=== PATIENT | female | born 1965 | race Caucasian/White ===

== ENCOUNTER 2017-08-08 12:40 | Emergency (ER) | payer BC ==
[2017-08-08 13:11] VITALS: RESP 18
[2017-08-08 14:01] LABS: Anisocytosis Slight; Basophils % (A) 1 %; Eosinophils # (A) 0.1 k/uL (0-0.7); Eosinophils % (A) 2 %; HCT 37.4 % (34.0-46.0); Hypochromasia Slight; Lymphocytes # (A) 1.1 k/uL (1.0-4.8); Lymphocytes % (A) 17 %; MCH 24.1 pg (25.0-35.0); MCHC 32.2 g/dL (31.0-37.0); MCV 74.7 fL (80.0-100.0); Mean Platelet Volume 7.3; Microcytosis Moderate; Monocytes # (A) 0.4 k/uL (0-1.0); Monocytes % (A) 6 %; Neutrophils # (A) 4.8 k/uL (1.3-7.7); Neutrophils % (A) 73 %; Platelet Count 216 k/uL (150-450); RDW 17.5 % (11.5-15.5); WBC 6.6 k/uL (3.8-10.6)
[2017-08-08 14:11] LABS: Albumin 3.9 g/dL (3.5-5.0); Calcium 9.6 mg/dL (8.4-10.2); Potassium 5.2 mmol/L (3.5-5.1); Total Protein 8.3 g/dL (6.3-8.2)
--- NOTE | 2017-08-08 14:14 | CT ---
EXAMINATION TYPE: CT brain wo con DATE OF EXAM: 08/08/2017 COMPARISON: NONE HISTORY: 51-year-old female complains of episode of near syncope and facial numbness. TECHNIQUE: Examination was done in axial plane without intravenous contrast. Coronal and sagittal r econstructions performed. CT DLP: 782.6 mGycm Automated exposure control for dose reduction was used. FINDINGS: There is no evidence of acute intracranial hemorrhage, acute ischemic changes, mass, mass-effect, or extra-axial fluid collection. There is no effacement of cerebral sulci or basal subarachnoid cister ns. There is no hydrocephalus. There is no midline shift. Mena-white matter distinction is preserv ed. Partially empty sella incidentally noted. Paranasal sinuses and mastoid air cells well pneumatized. Orbits and globes are intact. IMPRESSION: No acute intracranial abnormality seen.
[2017-08-08 14:15] LABS: Prothrombin Time 9.5 sec (9.0-12.0)
--- NOTE | 2017-08-08 14:15 | XR ---
EXAMINATION TYPE: XR chest 2V DATE OF EXAM: 08/08/2017 COMPARISON: None HISTORY: 51-year-old female syncope TECHNIQUE: Frontal and lateral views FINDINGS: Heart normal size. Aorta and pulmonary vasculature within normal limits. Strandy atelectasis at the r ight lower lung. No consolidation or pleural effusion. IMPRESSION: No acute cardiopulmonary process.
[2017-08-08 14:30] LABS: Creatine Kinase 93 U/L (30-135)
[2017-08-08 14:41] LABS: Creatine Kinase MB 1.1 ng/mL (0.0-2.4)
[2017-08-08 14:42] LABS: Troponin I <0.012 ng/mL (0.000-0.034)
--- NOTE | 2017-08-08 15:31 | ED ---
General Adult HPI - General Chief complaint: Syncope Stated complaint: Near Syncope Time Seen by Provider: 08/08/17 13:29 Source: patient Mode of arrival: ambulatory Limitations: no limitations - History of Present Illness Initial comments: 51 years old male just moved to [place] from [place] , like cramp on the left side and on cramp on the left upper extremity today it happened about 11:00 and she felt that she is given a pass out she also felt that there was some tingling of her face she denies any headache no blurred vision and then all the symptoms resolved on arrival to the ER she denies any headaches no blurred vision no chest pain no slurred speech she said she felt like there was a prolonged muscle cramp her left arm and the left leg but now is has all resolved 100%. She does have a history of liver disease she does have esophageal versus in she had a history of GI bleed from esophageal varices. Review of system is unremarkable otherwise - Related Data Home Medications Medication Instructions Recorded Confirmed Cetirizine HCl [Zyrtec] 10 mg PO DAILY 08/08/17 08/08/17 Furosemide [Lasix] 20 mg PO DAILY 08/08/17 08/08/17 Nadolol [Corgard] 40 mg PO DAILY 08/08/17 08/08/17 Nystatin 100,000 Unit/gm Oint 1 applic TOPICAL Q4H PRN 08/08/17 08/08/17 [Mycostatin Oint] Obeticholic Acid [Ocaliva] 5 mg PO DAILY 08/08/17 08/08/17 Pantoprazole Sodium [Protonix] 40 mg PO DAILY 08/08/17 08/08/17 Spironolactone 100 mg PO DAILY 08/08/17 08/08/17 hydrOXYzine HCL [Atarax] 50 mg PO HS PRN 08/08/17 08/08/17 Allergies Allergy/AdvReac Type Severity Reaction Status Date / Time codeine Allergy Unknown Verified 08/08/17 14:16 Review of Systems ROS Statement: Those systems with pertinent positive or pertinent negative responses have been documented in the HPI. ROS Other: All systems not noted in ROS Statement are negative. Past Medical History Past Medical History: Hypertension Additional Past Medical History / Comment(s): PBC History of Any Multi-Drug Resistant Organisms: None Reported Past Surgical History: Joint Replacement, Tubal Ligation Past Psychological History: No Psychological Hx Reported Smoking Status: Never smoker Past Alcohol Use History: Rare Past Drug Use History: None Reported General Exam - General Exam Comments Initial Comments: General: The patient is awake and alert, in no distress, and does not appear acutely ill. GCS is 15 Skin: Skin is warm and dry and no rashes or lesions are noted. Eye: Pupils are equal, round and reactive to light, extra-ocular movements are intact; there is normal conjunctiva bilaterally. Ears, nose, mouth and throat: There are moist mucous membranes and no oral lesions. Neck: The neck is supple, there is no tenderness or JVD. Cardiovascular: There is a regular rate and rhythm. No murmur, rub or gallop is appreciated. Respiratory: To auscultation bilateral, no wheezing no rhonchi no distress respiratory gaspar noticed Gastrointestinal: Soft, non-distended, non-tender abdomen without masses or organomegaly noted. There is no rebound or guarding present. Bowel sounds are unremarkable. Back: There is no tenderness to palpation in the midline. There is no obvious deformity. Musculoskeletal: Normal ROM, no tenderness, There is no pedal edema. There is no calf tenderness or swelling. No cords were appreciated. Neurological: CN II-XII intact, Cranial nerves III through XII are intact. There are no obvious motor or sensory deficits. Coordination appears grossly intact. Speech is normal. Psychiatric: Cooperative, appropriate mood & affect, normal judgment. Limitations: no limitations Course Vital Signs 08/08/17 13:04 Temperature 98.7 F Pulse Rate 66 Respiratory 18 Rate Blood Pressure 110/63 O2 Sat by Pulse 99 Oximetry Laboratory assessment CBC is normal INR is within normal range potassium is slightly elevated 5.2 creatinine is 1.39 I don't know her baseline troponin is negative head CT is unremarkable chest x-ray ruled out any pneumonia 1546 she has a no symptoms at all, no neuro deficits she was to go home, she be referred to neurology as outpatient she has a history of liver disease he is our ER doctor at the hand the floor for last EKG Findings - EKG Comments: EKG Findings:: I'm EKG is normal sinus rhythm ventricular rate is 61 MA interval is 136 QRS duration is 79 QRS duration is 79 QT/QTc is 448/452 review of this EKG reveals some T-wave inversion in lead [address] elevation or ST depression noticed in the other leads Medical Decision Making - Lab Data Result diagrams: 08/08/17 13:40 08/08/17 13:40 Lab Results 08/08/17 08/08/17 08/08/17 Range/Units 13:40 13:40 13:40 WBC 6.6 (3.8-10.6) k/uL RBC 5.00 (3.80-5.40) m/uL Hgb 12.0 (11.4-16.0) gm/dL Hct 37.4 (34.0-46.0) % MCV 74.7 L (80.0-100.0) fL MCH 24.1 L (25.0-35.0) pg MCHC 32.2 (31.0-37.0) g/dL RDW 17.5 H (11.5-15.5) % Plt Count 216 (150-450) k/uL Neutrophils % 73 % Lymphocytes % 17 % Monocytes % 6 % Eosinophils % 2 % Basophils % 1 % Neutrophils # 4.8 (1.3-7.7) k/uL Lymphocytes # 1.1 (1.0-4.8) k/uL Monocytes # 0.4 (0-1.0) k/uL Eosinophils # 0.1 (0-0.7) k/uL Basophils # 0.0 (0-0.2) k/uL Hypochromasia Slight Anisocytosis Slight Microcytosis Moderate PT (9.0-12.0) sec INR (<1.2) APTT (22.0-30.0) sec Sodium 140 (137-145) mmol/L Potassium 5.2 H (3.5-5.1) mmol/L Chloride 102 (98-107) mmol/L Carbon Dioxide 24 (22-30) mmol/L Anion Gap 14 mmol/L BUN 34 H (7-17) mg/dL Creatinine 1.39 H (0.52-1.04) mg/dL Est GFR (CKD-EPI)AfAm 50 (>60 ml/min/1.73 sqM) Est GFR (CKD-EPI)NonAf 43 (>60 ml/min/1.73 sqM) Glucose 116 H (74-99) mg/dL Calcium 9.6 (8.4-10.2) mg/dL Total Bilirubin 1.0 (0.2-1.3) mg/dL AST 71 H (14-36) U/L ALT 40 (9-52) U/L Alkaline Phosphatase 463 H (38-126) U/L Total Creatine Kinase 93 (30-135) U/L CK-MB (CK-2) 1.1 (0.0-2.4) ng/mL CK-MB (CK-2) Rel Index 1.2 Troponin I <0.012 (0.000-0.034) ng/mL Total Protein 8.3 H (6.3-8.2) g/dL Albumin 3.9 (3.5-5.0) g/dL Urine Color Urine Appearance (Clear) Urine pH (5.0-8.0) Ur Specific [place] (1.001-1.035) Urine Protein (Negative) Urine Glucose (UA) (Negative) Urine Ketones (Negative) Urine Blood (Negative) Urine Nitrite (Negative) Urine Bilirubin (Negative) Urine Urobilinogen (<2.0) mg/dL Ur Leukocyte Esterase (Negative) Urine RBC (0-5) /hpf Urine WBC (0-5) /hpf Ur Squamous Epith Cells (0-4) /hpf Urine Bacteria (None) /hpf Hyaline Casts (0-2) /lpf Urine Mucus (None) /hpf 08/08/17 08/08/17 Range/Units 13:40 14:30 WBC (3.8-10.6) k/uL RBC (3.80-5.40) m/uL Hgb (11.4-16.0) gm/dL Hct (34.0-46.0) % MCV (80.0-100.0) fL MCH (25.0-35.0) pg MCHC (31.0-37.0) g/dL RDW (11.5-15.5) % Plt Count (150-450) k/uL Neutrophils % % Lymphocytes % % Monocytes % % Eosinophils % % Basophils % % Neutrophils # (1.3-7.7) k/uL Lymphocytes # (1.0-4.8) k/uL Monocytes # (0-1.0) k/uL Eosinophils # (0-0.7) k/uL Basophils # (0-0.2) k/uL Hypochromasia Anisocytosis Microcytosis PT 9.5 (9.0-12.0) sec INR 1.0 (<1.2) APTT 22.0 (22.0-30.0) sec Sodium (137-145) mmol/L Potassium (3.5-5.1) mmol/L Chloride (98-107) mmol/L Carbon Dioxide (22-30) mmol/L Anion Gap mmol/L BUN (7-17) mg/dL Creatinine (0.52-1.04) mg/dL Est GFR (CKD-EPI)AfAm (>60 ml/min/1.73 sqM) Est GFR (CKD-EPI)NonAf (>60 ml/min/1.73 sqM) Glucose (74-99) mg/dL Calcium (8.4-10.2) mg/dL Total Bilirubin (0.2-1.3) mg/dL AST (14-36) U/L ALT (9-52) U/L Alkaline Phosphatase (38-126) U/L Total Creatine Kinase (30-135) U/L CK-MB (CK-2) (0.0-2.4) ng/mL CK-MB (CK-2) Rel Index Troponin I (0.000-0.034) ng/mL Total Protein (6.3-8.2) g/dL Albumin (3.5-5.0) g/dL Urine Color Yellow Urine Appearance Cloudy H (Clear) Urine pH 5.0 (5.0-8.0) Ur Specific [place] 1.010 (1.001-1.035) Urine Protein Negative (Negative) Urine Glucose (UA) Negative (Negative) Urine Ketones Negative (Negative) Urine Blood Negative (Negative) Urine Nitrite Negative (Negative) Urine Bilirubin Negative (Negative) Urine Urobilinogen <2.0 (<2.0) mg/dL Ur Leukocyte Esterase Negative (Negative) Urine RBC <1 (0-5) /hpf Urine WBC 1 (0-5) /hpf Ur Squamous Epith Cells 4 (0-4) /hpf Urine Bacteria Rare H (None) /hpf Hyaline Casts 9 H (0-2) /lpf Urine Mucus Rare H (None) /hpf Disposition Clinical Impression: Facial numbness, TIA (transient ischemic attack) Disposition: HOME SELF-CARE Condition: Good Referrals: None,Stated [Primary Care Provider] - 1-2 days Ana Berrios MD [STAFF PHYSICIAN] - 1-2 days
[2017-08-08 15:34] LABS: Appearance,Urine Cloudy (Clear); Bacteria,Urine Rare /hpf; Bilirubin,Urine Negative (Negative); Blood,Urine Negative (Negative); Color,Urine Yellow; Glucose,Urine (UA) Negative (Negative); Hyaline Casts,Urine 9 /lpf (0-2); Ketones,Urine Negative (Negative); Leukocyte Esterase,Urine Negative (Negative); Mucus,Urine Rare /hpf; Nitrite,Urine Negative (Negative); Protein,Urine Negative (Negative); RBC,Urine <1 /hpf (0-5); Squamous Epithelial Cell,Urine 4 /hpf (0-4); Urobilinogen,Urine <2.0 mg/dL (<2.0); WBC,Urine 1 /hpf (0-5)
[2017-08-08 16:04] VITALS: BP 94/57; PULSE 61; TEMP 97.7
== END 2017-08-08 16:03 | disposition home or self-care (01) ==
LOC: EC 12:40
DX: G45.9 Transient cerebral ischemic attack, unspecified (principal); I10 Essential (primary) hypertension; I85.01 Esophageal varices with bleeding; Z79.899 Other long term (current) drug therapy; Z88.5 Allergy status to narcotic agent
CPT/HCPCS: 36415; 70450; 71046; 80053; 81001; 82550; 82553; 84484; 85025; 85610; 85730; 93005; 99284

== ENCOUNTER 2018-10-12 20:52 | Observation (INO) | payer BC ==
[2018-10-12] MEDS ORDERED: MORPHINE SULFATE 4 MG/ML SYRINGE IV STA ×2 (21:36→23:23)
--- NOTE | 2018-10-12 21:36 | ED ---
Fall HPI - General Chief Complaint: Fall Stated Complaint: Fall Time Seen by Provider: 10/12/18 21:23 Source: patient Mode of arrival: wheelchair - History of Present Illness Initial Comments: This patient is a 52-year-old woman who states that she was thrown from a horse and had fallen. She states the horse had been startled and then she was thrown off, landing on the back of her neck, back and head. She complains of pain from the head down her back. She states she did not have loss consciousness. She has been up and walking since that period. Complaint: fall -: hour(s) Fall From: other (Course) When Fall Occurred: 1-3 hours [employer]RETCH[employer] DRI[employer] Fall Witnessed: yes, by family Place Fall Occurred: other Loss of Consciousness: none Prolonged Down Time?: no Symptoms Prior to Fall: none Location: head, neck, back Severity: severe Quality: dull Associated Symptoms: headache, neck pain - Related Data Home Medications Medication Instructions Recorded Confirmed Furosemide [Lasix] 20 mg PO BID 08/08/17 10/12/18 Nadolol [Corgard] 20 mg PO DAILY 08/08/17 10/12/18 Obeticholic Acid [Ocaliva] 5 mg PO DAILY 08/08/17 10/12/18 Pantoprazole Sodium [Protonix] 40 mg PO DAILY 08/08/17 10/12/18 Spironolactone 50 mg PO DAILY 08/08/17 10/12/18 hydrOXYzine HCL [Atarax] 50 mg PO HS 08/08/17 10/12/18 Rifampin 150 mg PO BID 10/12/18 10/12/18 Ursodiol 300 mg PO BID 10/12/18 10/12/18 Allergies Allergy/AdvReac Type Severity Reaction Status Date / Time codeine AdvReac Chest Pain Verified 10/12/18 22:24 Review of Systems ROS Statement: Those systems with pertinent positive or pertinent negative responses have been documented in the HPI. ROS Other: All systems not noted in ROS Statement are negative. Constitutional: Denies: fever, chills Eyes: Denies: vision change Respiratory: Denies: cough, dyspnea Cardiovascular: Denies: chest pain, palpitations, syncope Gastrointestinal: Denies: abdominal pain, vomiting, diarrhea Genitourinary: Denies: dysuria, hematuria Musculoskeletal: Reports: as per HPI, back pain Skin: Denies: rash Neurological: Reports: headache. Denies: weakness, numbness, paresthesias, confusion Hematological/Lymphatic: Denies: easy bleeding Past Medical History Past Medical History: Hypertension Additional Past Medical History / Comment(s): PBC History of Any Multi-Drug Resistant Organisms: None Reported Past Surgical History: Joint Replacement, Tubal Ligation Past Psychological History: No Psychological Hx Reported Smoking Status: Never smoker Past Alcohol Use History: Rare Past Drug Use History: None Reported General Exam Limitations: no limitations General appearance: alert, in no apparent distress Head exam: Present: atraumatic, normocephalic, normal inspection Eye exam: Present: normal appearance, PERRL, EOMI. Absent: scleral icterus, conjunctival injection ENT exam: Present: normal oropharynx Neck exam: Present: normal inspection, other (Cervical collar) Respiratory exam: Present: normal lung sounds bilaterally. Absent: respiratory distress, wheezes, rales, rhonchi, stridor, chest wall tenderness Cardiovascular Exam: Present: regular rate, normal rhythm, normal heart sounds. Absent: systolic murmur, diastolic murmur, rubs, gallop GI/Abdominal exam: Present: soft. Absent: distended, tenderness, guarding, rebound, rigid, mass Extremities exam: Present: normal inspection, full ROM, normal capillary refill. Absent: tenderness, pedal edema, calf tenderness Back exam: Present: normal inspection, tenderness. Absent: CVA tenderness (R), CVA tenderness (L) Neurological exam: Present: alert, oriented X3, CN II-XII intact. Absent: motor sensory deficit Skin exam: Present: warm, dry, intact, normal color. Absent: rash Course Vital Signs 10/12/18 20:59 Temperature 98.2 F Pulse Rate 81 Respiratory 18 Rate Blood Pressure 168/86 O2 Sat by Pulse 100 Oximetry Medical Decision Making - Lab Data Result diagrams: 10/12/18 21:15 10/12/18 21:15 Lab Results 10/12/18 10/12/18 10/12/18 Range/Units 21:15 21:15 23:16 WBC 3.5 L (3.8-10.6) k/uL RBC 4.31 (3.80-5.40) m/uL Hgb 12.7 (11.4-16.0) gm/dL Hct 39.8 (34.0-46.0) % MCV 92.5 (80.0-100.0) fL MCH 29.5 (25.0-35.0) pg MCHC 31.9 (31.0-37.0) g/dL RDW 15.1 (11.5-15.5) % Plt Count 93 L (150-450) k/uL Neutrophils % 72 % Lymphocytes % 20 % Monocytes % 5 % Eosinophils % 2 % Basophils % 1 % Neutrophils # 2.5 (1.3-7.7) k/uL Lymphocytes # 0.7 L (1.0-4.8) k/uL Monocytes # 0.2 (0-1.0) k/uL Eosinophils # 0.1 (0-0.7) k/uL Basophils # 0.0 (0-0.2) k/uL Manual Slide Review Performed Large Platelets Present Sodium 142 (137-145) mmol/L Potassium 4.3 (3.5-5.1) mmol/L Chloride 111 H (98-107) mmol/L Carbon Dioxide 21 L (22-30) mmol/L Anion Gap 10 mmol/L BUN 17 (7-17) mg/dL Creatinine 0.84 (0.52-1.04) mg/dL Est GFR (CKD-EPI)AfAm >90 (>60 ml/min/1.73 sqM) Est GFR (CKD-EPI)NonAf 79 (>60 ml/min/1.73 sqM) Glucose 138 H (74-99) mg/dL Calcium 9.2 (8.4-10.2) mg/dL Total Bilirubin 2.0 H (0.2-1.3) mg/dL AST 218 H (14-36) U/L ALT 135 H (9-52) U/L Alkaline Phosphatase 581 H (38-126) U/L Total Protein 8.2 (6.3-8.2) g/dL Albumin 4.1 (3.5-5.0) g/dL Urine Color Yellow Urine Appearance Cloudy H (Clear) Urine pH 5.5 (5.0-8.0) Ur Specific [place] 1.019 (1.001-1.035) Urine Protein Negative (Negative) Urine Glucose (UA) Negative (Negative) Urine Ketones Negative (Negative) Urine Blood Negative (Negative) Urine Nitrite Positive H (Negative) Urine Bilirubin Negative (Negative) Urine Urobilinogen <2.0 (<2.0) mg/dL Ur Leukocyte Esterase Small H (Negative) Urine RBC 1 (0-5) /hpf Urine WBC 9 H (0-5) /hpf Ur Squamous Epith Cells 5 H (0-4) /hpf Urine Bacteria Occasional H (None) /hpf Urine Mucus Rare H (None) /hpf Disposition Clinical Impression: Fall Disposition: ADMITTED IP TO THIS HOSP Condition: Fair Instructions (If sedation given, give patient instructions): Back Pain (ED) Is patient prescribed a controlled substance at d/c from ED?: No Referrals: Nonstaff,Physician [Primary Care Provider] - 1-2 days Jesse Benavides DO [Doctor of Osteopathic Medicine] - 1-2 days
[2018-10-12 22:03] LABS: Basophils % (A) 1 %; Eosinophils # (A) 0.1 k/uL (0-0.7); Eosinophils % (A) 2 %; HCT 39.8 % (34.0-46.0); HGB 12.7 gm/dL (11.4-16.0); Lymphocytes # (A) 0.7 k/uL (1.0-4.8); Lymphocytes % (A) 20 %; MCH 29.5 pg (25.0-35.0); MCHC 31.9 g/dL (31.0-37.0); MCV 92.5 fL (80.0-100.0); Mean Platelet Volume 8.7; Monocytes # (A) 0.2 k/uL (0-1.0); Monocytes % (A) 5 %; Neutrophils # (A) 2.5 k/uL (1.3-7.7); Neutrophils % (A) 72 %; RBC 4.31 m/uL (3.80-5.40); RDW 15.1 % (11.5-15.5); WBC 3.5 k/uL (3.8-10.6)
--- NOTE | 2018-10-12 22:04 | CT ---
EXAMINATION TYPE: CT brain cspine wo con DATE OF EXAM: 10/12/2018 COMPARISON: 08/08/2017 HISTORY: Head and neck pain CT DLP: 1316.5 mGycm. Automated Exposure Control for Dose Reduction was Utilized. TECHNIQUE: CT scan of the head and cervical spine are performed without contrast. FINDINGS: There is no acute intracranial hemorrhage, mass effect, or midline shift identified. The ventricles and sulci are within normal limits in size. The globes are intact and the visualized sin uses are clear. Cervical spine is visualized in its entirety from C1 through upper thoracic levels and demonstrates s atisfactory alignment without evidence of acute fracture or dislocation. Small posterior disc osteop hyte complexes seen at C4-C5. Minimal uncovertebral hypertrophy is noted at multiple levels. Preverte bral soft tissue appears within normal limits. The C1-C2 articulation is unremarkable. Left lobe of the thyroid gland is noted to be diminutive or surgically absent. IMPRESSION: 1. There is no acute fracture or dislocation evident in the cervical spine. 2. No acute intracranial hemorrhage, mass effect, or midline shift is seen.
[2018-10-12 22:10] LABS: ALT 135 U/L (9-52); AST 218 U/L (14-36); African American GFR (CKD) >90 (>60 ml/min/1.73 sqM); Albumin 4.1 g/dL (3.5-5.0); Alkaline Phosphatase 581 U/L (38-126); Anion Gap 10 mmol/L; Blood Urea Nitrogen 17 mg/dL (7-17); Calcium 9.2 mg/dL (8.4-10.2); Carbon Dioxide 21 mmol/L (22-30); Chloride 111 mmol/L (98-107); Glucose 138 mg/dL (74-99); Potassium 4.3 mmol/L (3.5-5.1); Sodium 142 mmol/L (137-145); Total Protein 8.2 g/dL (6.3-8.2)
[2018-10-12 22:27] LABS: Large Platelets Present; Platelet Count 93 k/uL (150-450)
--- NOTE | 2018-10-12 22:56 | XR ---
EXAM: XR Pelvis, 1 or 2 Views CLINICAL HISTORY: ITS.REASON XR Reason: Pain TECHNIQUE: Frontal view of the pelvis. COMPARISON: No relevant prior studies available. FINDINGS: Bones/joints: Unremarkable. No acute fracture. No dislocation. Soft tissues: Unremarkable. IMPRESSION: No acute findings.
--- NOTE | 2018-10-12 22:57 | XR ---
EXAM: XR Thoracic Spine, 2 Views CLINICAL HISTORY: ITS.REASON XR Reason: Pain TECHNIQUE: Frontal and lateral views of the thoracic spine. COMPARISON: No relevant prior studies available. FINDINGS: Vertebrae: Unremarkable. No acute fracture. Normal alignment. Disc spaces: No acute findings. No significant narrowing. Soft tissues: Surgical clips in the right upper quadrant. IMPRESSION: No acute findings.
--- NOTE | 2018-10-12 22:58 | XR ---
EXAM: XR Chest, 2 Views CLINICAL HISTORY: ITS.REASON XR Reason: Pain TECHNIQUE: Frontal and lateral views of the chest. COMPARISON: No relevant prior studies available. FINDINGS: Lungs: Low lung volumes. No consolidation. Pleural space: Unremarkable. No pneumothorax. Heart: Unremarkable. No cardiomegaly. Mediastinum: Unremarkable. Bones/joints: Unremarkable. IMPRESSION: Low lung volumes. No acute findings.
[2018-10-12 23:31] LABS: Appearance,Urine Cloudy (Clear); Bacteria,Urine Occasional /hpf; Bilirubin,Urine Negative (Negative); Blood,Urine Negative (Negative); Color,Urine Yellow; Glucose,Urine (UA) Negative (Negative); Ketones,Urine Negative (Negative); Leukocyte Esterase,Urine Small (Negative); Mucus,Urine Rare /hpf; Nitrite,Urine Positive (Negative); PH, Urine 5.5 (5.0-8.0); Protein,Urine Negative (Negative); RBC,Urine 1 /hpf (0-5); Specific Gravity,Urine 1.019 (1.001-1.035); Squamous Epithelial Cell,Urine 5 /hpf (0-4); Urobilinogen,Urine <2.0 mg/dL (<2.0); WBC,Urine 9 /hpf (0-5)
--- NOTE | 2018-10-13 00:02 | CT ---
EXAM: CT Chest Without Intravenous Contrast CLINICAL HISTORY: ITS.REASON CT Reason: Pain TECHNIQUE: Axial computed tomography images of the chest without intravenous contrast. CTDI is 6.7 mGy and DLP is 307.4 mGy-cm. This CT exam was performed using one or more of the following dose reduction techniques: automated exposure control, adjustment of the mA and/or kV according to patient size, and/or use of iterative reconstruction technique. COMPARISON: No relevant prior studies available. FINDINGS: Lungs: Scattered atelectasis. No mass. No consolidation. Pleural space: Unremarkable. No pneumothorax. No significant effusion. Heart: Unremarkable. No cardiomegaly. No significant pericardial effusion. Bones/joints: Unremarkable. No acute fracture. No dislocation. Soft tissues: Unremarkable. Vasculature: Unremarkable. No thoracic aortic aneurysm. Lymph nodes: Unremarkable. No enlarged lymph nodes. Liver: Micronodular contour to the liver suggestive of cirrhosis. Gallbladder and bile ducts: Prior cholecystectomy. Pancreas: Diffuse mesenteric edema and small amount of fluid in the right paracolic gutter. Cannot exclude inflammatory processes such as pancreatitis. Spleen: Splenomegaly. Stomach wall thickening. IMPRESSION: No acute findings. Cirrhotic liver and splenomegaly. Nonspecific mesenteric edema and right paracolic fluid. This could be secondary to liver disease, though an intra-abdominal inflammatory process such as pancreatitis is difficult to exclude. Stomach wall thickening could be related to under distention versus gastritis.
[2018-10-13] MEDS ORDERED: HYDROmorphone 0.5 MG/0.5 ML SYRINGE IVP STA (00:24)
[2018-10-13] MEDS ORDERED: KETOROLAC 30 MG/ML 1 ML VIAL IVP STA (00:24)
[2018-10-13] MEDS ORDERED: NALOXONE 0.4 MG/ML 1 ML VIAL IV PRN (01:00)
[2018-10-13] MEDS ORDERED: ACETAMINOPHEN TAB 325 MG TAB PO PRN (01:00)
[2018-10-13] MEDS: SODIUM CHLORIDE 0.9% 1,000 ML IV SCH ×2 (01:37→17:27)
[2018-10-13] MEDS: HYDROmorphone 0.5 MG/0.5 ML SYRINGE IVP PRN ×2 (02:39→07:56)
[2018-10-13 03:23] VITALS: BMI 30.7
[2018-10-13] MEDS: ONDANSETRON 4 MG/2 ML VIAL IVP PRN (03:45)
--- NOTE | 2018-10-13 08:44 | CT ---
EXAMINATION TYPE: CT thor lumbar spine wo con DATE OF EXAM: 10/13/2018 COMPARISON: None HISTORY: Intractable back pain, thrown from horse CT DLP: 946.4 mGycm Automated exposure control for dose reduction was used. FINDINGS: Mild superior endplate of T12, T6 and T7 are noted compatible with mild superior endplate compression fractures of indeterminate age. MRI suggested. Schmorl's nodes involving T11 and T9 superior endplate. Alignment anatomic. Assessment spinal canal nondiagnostic due to noncontrast technique and resolution . The heart appears to be enlarged Subsegmental changes involving the lung suggestive of atelectasis or scarring. Underlying chronic int erstitial lung disease in the differential diagnosis. Small amount of fluid is seen in the right [place] colic gutter and mesenteric fluid or edema. Could not exclude a mesenteric vascular, pancreatic or du odenal injury. Findings been reported on the CT scan of 10/12/2018. IMPRESSION: 1. Recent appearing cyst superior endplate mild compression fractures T6 and T7. Assessment spinal ca nal nondiagnostic as discussed above. Follow-up MRI recommended. 2. Indeterminant age appearing deformity superior endplate T12. 3. Incidental note is made of a small amount of fluid within the right paracolic gutter which was rep orted on the CT scan of 10/12/2018
--- NOTE | 2018-10-13 08:54 | P.GSHP ---
History of Present Illness H&P Date: 10/13/18 52-year-old female presented to the emergency department after a fall from riding a horse. She states that she lost control and fell onto her back. She denied any loss of consciousness. She states that she does ride horses as a hobby and has had multiple falls from horses in the past. She states that during her fall her breath was knocked out of her. She did present to the emergency department and had a workup. Imaging in the emergency department did not show any acute injury. The patient continued to have pain and request was made for admission for analgesia. The patient currently denies any chest pain. She states that she does have pain in her back in a bandlike fashion to her mid back. She denies any nausea vomiting. She denies any abdominal pain. She denies any focal deficits. She denies any numbness or tingling in her upper or lower extremities. She does have appropriate motor strength in all extremities. She is also noted to have a history of primary biliary cirrhosis and is on the liver transplant list. She has no additional complaints at this time. - Review of Systems All systems: negative Past Medical History Past Medical History: Hypertension Additional Past Medical History / Comment(s): PBC History of Any Multi-Drug Resistant Organisms: None Reported Past Surgical History: Joint Replacement, Tubal Ligation Past Anesthesia/Blood Transfusion Reactions: No Reported Reaction Past Psychological History: No Psychological Hx Reported Smoking Status: Never smoker Past Alcohol Use History: Rare Past Drug Use History: None Reported - Past Family History Father Family Medical History: CVA/TIA, Myocardial Infarction ([place]) Mother Family Medical History: Diabetes Mellitus Medications and Allergies Home Medications Medication Instructions Recorded Confirmed Type Furosemide [Lasix] 20 mg PO BID 08/08/17 10/12/18 History Nadolol [Corgard] 20 mg PO DAILY 08/08/17 10/12/18 History Obeticholic Acid [Ocaliva] 5 mg PO DAILY 08/08/17 10/12/18 History Pantoprazole Sodium [Protonix] 40 mg PO DAILY 08/08/17 10/12/18 History Spironolactone 50 mg PO DAILY 08/08/17 10/12/18 History hydrOXYzine HCL [Atarax] 50 mg PO HS 08/08/17 10/12/18 History Rifampin 150 mg PO BID 10/12/18 10/12/18 History Ursodiol 300 mg PO BID 10/12/18 10/12/18 History Allergies Allergy/AdvReac Type Severity Reaction Status Date / Time codeine AdvReac Chest Pain Verified 10/12/18 22:24 Surgical - Exam Osteopathic Statement: *. No significant issues noted on an osteopathic structural exam other than those noted in the History and Physical/Consult. Vital Signs Temp Pulse Resp BP Pulse Ox 98.2 F 81 18 168/86 100 10/12/18 20:59 10/12/18 20:59 10/12/18 20:59 10/12/18 20:59 10/12/18 20:59 - General well developed, well nourished, moderate distress - Eyes PERRL, normal ocular movement - ENT no hearing loss - Neck no masses, no bruits, trachea midline - Respiratory no difficulty with respiration - Abdomen soft, nontender, nondistended, no rebound, no guarding - Integumentary no rash, no growths, no abnormal pigmentation - Neurologic normal coordination, normal sensation - Musculoskeletal Pain to palpation in mid back and radiating to bilateral flanks - Psychiatric oriented to time, oriented to person, oriented to place Results - Labs 10/12/18 21:15 10/12/18 21:15 Abnormal Lab Results - Last 24 Hours (Table) 10/12/18 10/12/18 10/12/18 Range/Units 21:15 21:15 23:16 WBC 3.5 L (3.8-10.6) k/uL Plt Count 93 L (150-450) k/uL Lymphocytes # 0.7 L (1.0-4.8) k/uL Chloride 111 H (98-107) mmol/L Carbon Dioxide 21 L (22-30) mmol/L Glucose 138 H (74-99) mg/dL Total Bilirubin 2.0 H (0.2-1.3) mg/dL AST 218 H (14-36) U/L ALT 135 H (9-52) U/L Alkaline Phosphatase 581 H (38-126) U/L Urine Appearance Cloudy H (Clear) Urine Nitrite Positive H (Negative) Ur Leukocyte Esterase Small H (Negative) Urine WBC 9 H (0-5) /hpf Ur Squamous Epith Cells 5 H (0-4) /hpf Urine Bacteria Occasional H (None) /hpf Urine Mucus Rare H (None) /hpf Diabetes panel 10/12/18 Range/Units 21:15 Sodium 142 (137-145) mmol/L Potassium 4.3 (3.5-5.1) mmol/L Chloride 111 H (98-107) mmol/L Carbon Dioxide 21 L (22-30) mmol/L BUN 17 (7-17) mg/dL Creatinine 0.84 (0.52-1.04) mg/dL Glucose 138 H (74-99) mg/dL Calcium 9.2 (8.4-10.2) mg/dL AST 218 H (14-36) U/L ALT 135 H (9-52) U/L Alkaline Phosphatase 581 H (38-126) U/L Total Protein 8.2 (6.3-8.2) g/dL Albumin 4.1 (3.5-5.0) g/dL Calcium panel 10/12/18 Range/Units 21:15 Calcium 9.2 (8.4-10.2) mg/dL Albumin 4.1 (3.5-5.0) g/dL Pituitary panel 10/12/18 Range/Units 21:15 Sodium 142 (137-145) mmol/L Potassium 4.3 (3.5-5.1) mmol/L Chloride 111 H (98-107) mmol/L Carbon Dioxide 21 L (22-30) mmol/L BUN 17 (7-17) mg/dL Creatinine 0.84 (0.52-1.04) mg/dL Glucose 138 H (74-99) mg/dL Calcium 9.2 (8.4-10.2) mg/dL Adrenal panel 10/12/18 Range/Units 21:15 Sodium 142 (137-145) mmol/L Potassium 4.3 (3.5-5.1) mmol/L Chloride 111 H (98-107) mmol/L Carbon Dioxide 21 L (22-30) mmol/L BUN 17 (7-17) mg/dL Creatinine 0.84 (0.52-1.04) mg/dL Glucose 138 H (74-99) mg/dL Calcium 9.2 (8.4-10.2) mg/dL Total Bilirubin 2.0 H (0.2-1.3) mg/dL AST 218 H (14-36) U/L ALT 135 H (9-52) U/L Alkaline Phosphatase 581 H (38-126) U/L Total Protein 8.2 (6.3-8.2) g/dL Albumin 4.1 (3.5-5.0) g/dL Assessment and Plan (1) Fall Narrative/Plan: 52-year-old female with fall from horse - Due to continued pain, we will plan for a designated CT of the thoracic and lumbar spine - Continue analgesia - Advance diet - Further recommendations after imaging is completed Current Visit: Yes Status: Acute Code(s): W19.XXXA - UNSPECIFIED FALL, INITIAL ENCOUNTER SNOMED Code(s): 7471599
[2018-10-13] MEDS ORDERED: FAMOTIDINE 20 MG TAB PO SCH (09:00)
[2018-10-13] MEDS ORDERED: URSODIOL 300 MG CAP PO SCH (09:00)
[2018-10-13] MEDS: [UNRECOGNIZED DRUG - OTHER] PO SCH (10:24)
[2018-10-13] MEDS: RIFAMPIN 150 MG PO SCH ×2 (10:25→21:17)
[2018-10-13] MEDS: FUROSEMIDE 20 MG TAB PO SCH ×2 (10:28→17:31)
[2018-10-13] MEDS: SPIRONOLACTONE 25 MG TAB PO SCH (10:28)
[2018-10-13] MEDS: NADOLOL 20 MG TAB PO SCH (10:29)
[2018-10-13] MEDS: PANTOPRAZOLE 40 MG TABLET PO SCH (10:33)
[2018-10-13] MEDS: MORPHINE SULFATE 4 MG/ML SYRINGE IV PRN ×3 (10:34→22:54)
[2018-10-13] MEDS: traMADol 50 MG TAB PO PRN (13:37)
[2018-10-13] MEDS: METHOCARBAMOL 500 MG TAB PO SCH ×3 (13:38→21:19)
--- NOTE | 2018-10-13 19:44 | MR ---
EXAMINATION TYPE: MR thoracic spine wo con DATE OF EXAM: 10/13/2018 COMPARISON: HISTORY: T12 FX S/P Fall Standard multiplanar, multisequence MRI departmental protocol Multiplanar, multisequence images of the thoracic spine were acquired. Diffusion weighted imaging was performed. FINDINGS: Vertebra have fairly normal alignment. There is anterior mild wedging of T6 and T7 vertebra l bodies with 10% loss of height at the superior endplates. There is very slight increased signal on T2 images in these vertebral bodies. There is no thoracic paraspinal mass. There is a Schmorl node on the superior endplate of T11. There is very mild edema in the anterior aspect of T12 vertebral body. There is very slight anterior wedgin g of T11 and T12. There is no thoracic paraspinal mass. Posterior elements are intact. There is no spinal stenosis. Tho racic spinal cord shows no evidence of edema. IMPRESSION: Mild thoracic compression fractures. No significant spur formation. These could be relatively acute f ractures. No spinal stenosis. It is not clear if the fractures are a change compared to old chest x-r ay of 08/08/2017.
[2018-10-13] MEDS: hydrOXYzine HCL 25 MG TAB PO SCH (21:18)
--- NOTE | 2018-10-13 23:20 | P.CNOR ---
History of Present Illness - [facility] Consult date: 10/13/18 Requesting physician: Joleen Gaspar Consult reason: fracture (T6, T7, and T12 mild superior endplate compression fracture deformities) History of present illness: Patient is a pleasant 52-year-old female who is seen at the bedside for further evaluation in regards to her thoracic spine. She was thrown off of a horse yesterday, 10/12/2018, sustaining pain in her thoracic spine since that time. She presented to the emergency department for further evaluation. Initially no significant findings were found on x-ray imaging. CT of the thoracic lumbar spine showed evidence of bony changes at T6 and T7 compression fracture deformity at T12. Patient states she has significant pain at the lower thoracic spine with any movements of her spine. She denies any specific lower extremity weakness or radiculopathy bilaterally. She does have some soreness over the lateral hips and thighs. Multiple imaging modalities were taken during her presentation to the emergency department. She is known to have fallen off her horse previously. She has a history of primary biliary cirrhosis and is unable take acetaminophen. Past Medical History Past Medical History: Hypertension Additional Past Medical History / Comment(s): PBC History of Any Multi-Drug Resistant Organisms: None Reported Past Surgical History: Joint Replacement, Tubal Ligation Past Anesthesia/Blood Transfusion Reactions: No Reported Reaction Past Psychological History: No Psychological Hx Reported Smoking Status: Never smoker Past Alcohol Use History: Rare Past Drug Use History: None Reported - Past Family History Father Family Medical History: CVA/TIA, Myocardial Infarction ([place]) Mother Family Medical History: Diabetes Mellitus Medications and Allergies Home Medications Medication Instructions Recorded Confirmed Type Furosemide [Lasix] 20 mg PO BID 08/08/17 10/12/18 History Nadolol [Corgard] 20 mg PO DAILY 08/08/17 10/12/18 History Obeticholic Acid [Ocaliva] 5 mg PO DAILY 08/08/17 10/12/18 History Pantoprazole Sodium [Protonix] 40 mg PO DAILY 08/08/17 10/12/18 History Spironolactone 50 mg PO DAILY 08/08/17 10/12/18 History hydrOXYzine HCL [Atarax] 50 mg PO HS 08/08/17 10/12/18 History Rifampin 150 mg PO BID 10/12/18 10/12/18 History Ursodiol 300 mg PO BID 10/12/18 10/12/18 History Allergies Allergy/AdvReac Type Severity Reaction Status Date / Time codeine AdvReac Chest Pain Verified 10/12/18 22:24 Physical Examination Physical exam: Patient is awake, alert, and oriented 3 Vital signs stable Good chest excursion with deep inspiration and expiration Examination of thoracic and lumbar spine reveals skin is intact with no abrasions, lacerations, or bruises; no erythema, purulence or signs of infection Mild pain with palpation of the mid upper thoracic spine Significant pain with palpation along the midline of the lower thoracic spine Dorsiflexion, plantarflexion, and extensor hallucis longus positive sustained bilaterally Lower extremity strength 5/5 bilaterally No lower extremity hyperreflexia bilaterally No signs or symptoms of DVT; no calf pain No pain with internal and external rotation of the hips bilaterally Neurovascularly intact Results Pertinent studies: CT of the thoracic and lumbar spine taken on 10/13/2018: T12 superior endplate deformity; T6 and T7 recent-appearing cyst at the superior endplate resulting mild compression fracture in which follow-up MRI is recommended; T9 and T11 Schmorl's node; no evidence of lumbar compression fracture deformity X-ray of the pelvis taken on 10/12/2018: No evidence of fracture dislocation within the pelvis; hip joint space and appears to be adequately maintained bilaterally - Labs Labs: Abnormal Lab Results - Last 24 Hours (Table) 10/12/18 10/12/18 10/12/18 Range/Units 21:15 21:15 23:16 WBC 3.5 L (3.8-10.6) k/uL Plt Count 93 L (150-450) k/uL Lymphocytes # 0.7 L (1.0-4.8) k/uL Chloride 111 H (98-107) mmol/L Carbon Dioxide 21 L (22-30) mmol/L Glucose 138 H (74-99) mg/dL Total Bilirubin 2.0 H (0.2-1.3) mg/dL AST 218 H (14-36) U/L ALT 135 H (9-52) U/L Alkaline Phosphatase 581 H (38-126) U/L Urine Appearance Cloudy H (Clear) Urine Nitrite Positive H (Negative) Ur Leukocyte Esterase Small H (Negative) Urine WBC 9 H (0-5) /hpf Ur Squamous Epith Cells 5 H (0-4) /hpf Urine Bacteria Occasional H (None) /hpf Urine Mucus Rare H (None) /hpf H & H 10/12/18 Range/Units 21:15 Hgb 12.7 (11.4-16.0) gm/dL Hct 39.8 (34.0-46.0) % Result Diagrams: 10/12/18 21:15 10/12/18 21:15 Assessment and Plan Assessment: Assessment: T6, T7, and T12 mild superior endplate compression fracture deformities Status post fall from horse Intractable thoracic back pain Primary biliary cirrhosis (1) T6 vertebral fracture Current Visit: Yes Status: Acute Code(s): S22.059A - UNSP FRACTURE OF T5-T6 VERTEBRA, INIT FOR CLOS FX SNOMED Code(s): 527751054 (2) T7 vertebral fracture Current Visit: Yes Status: Acute Code(s): S22.069A - UNSP FRACTURE OF T7-T8 VERTEBRA, INIT FOR CLOS FX SNOMED Code(s): 046730180 (3) T12 compression fracture Current Visit: Yes Status: Acute Code(s): S22.080A - WEDGE COMPRESSION FRACTURE OF T11-T12 VERTEBRA, INIT SNOMED Code(s): 989513841 (4) Fall from horse Current Visit: Yes Status: Acute Code(s): V80.010A - ANIML-RIDR INJURED BY FALL FR HORSE IN [facility], INIT SNOMED Code(s): 413221261 (5) Thoracic back pain Current Visit: Yes Status: Acute Code(s): M54.6 - PAIN IN THORACIC SPINE SNOMED Code(s): 273524916 (6) Primary biliary cirrhosis Current Visit: Yes Status: Acute Code(s): K74.3 - PRIMARY BILIARY CIRRHOSIS SNOMED Code(s): 05728941 Plan: Plan: 1. After reviewing of imaging, physical examination the patient, and further discussion with the patient, will currently planned to continue with conservative treatment at this time. Patient does have evidence of multiple changes with compression at T6, T7, and T12. We'll plan to obtain an MRI of the thoracic spine for further evaluation. We will also plan for bracing. A prescription has been written and provided to case management for a Spinomed TLSO brace. Once this brace is delivered and fitted appropriately, patient should wear this brace while sitting upright at greater than 45, during increase activities, during ambulation. Brace does not have to or while lying in bed or while bathing. Following fitting of this brace and reviewing her MRI imaging, patient will be clear for discharge from an orthopedic spine standpoin t. Following discharge, patient may follow-up with Jerry Almazan PA-C or Dr. Johann Benavides at [facility] in 2-3 weeks. 2. Patient will continue be seen and examined by medicine for her other medical diagnoses Time with Patient: Greater than 30 (Including obtaining history, physical examination, reviewing of imaging, and dictation.)
[2018-10-14] MEDS: SODIUM CHLORIDE 0.9% 1,000 ML IV SCH ×2 (05:27→17:40)
[2018-10-14] MEDS: traMADol 50 MG TAB PO PRN ×2 (06:35→21:16)
[2018-10-14] MEDS: URSODIOL 300 MG CAP PO SCH ×2 (07:22→09:48)
[2018-10-14] MEDS: ONDANSETRON 4 MG/2 ML VIAL IVP PRN (07:41)
[2018-10-14] MEDS: PANTOPRAZOLE 40 MG TABLET PO SCH (10:17)
[2018-10-14] MEDS: SPIRONOLACTONE 25 MG TAB PO SCH (10:17)
[2018-10-14] MEDS: MORPHINE SULFATE 4 MG/ML SYRINGE IV PRN (10:17)
[2018-10-14] MEDS: LIDOCAINE 5% PATCH TOPICAL SCH (10:18)
[2018-10-14] MEDS: [UNRECOGNIZED DRUG - OTHER] PO SCH (10:20)
[2018-10-14] MEDS: RIFAMPIN 150 MG PO SCH ×2 (10:20→21:20)
[2018-10-14] MEDS: METHOCARBAMOL 500 MG TAB PO SCH ×4 (10:20→21:16)
[2018-10-14] MEDS ORDERED: KETOROLAC 30 MG/ML 1 ML VIAL IVP ONE (11:05)
[2018-10-14] MEDS: NADOLOL 20 MG TAB PO SCH (11:44)
--- NOTE | 2018-10-14 12:59 | P.PN ---
Progress Note - Text Progress Note Date: 10/14/18 Patient is a pleasant 52-year-old female who is seen at the bedside for follow- up evaluation in regards to her thoracic spine. She was thrown off of a horse 10/12/2018, sustaining pain in her thoracic spine since that time. She presented to the emergency department for further evaluation. Initially no significant findings were found on x-ray imaging. CT of the thoracic lumbar spine showed evidence of bony changes at T6 and T7 and compression fracture deformity at T12. Since being seen and examined yesterday she has not had significant change in her symptoms. She continues to experience significant pain at the lower thoracic spine with any movements of her spine. She denies any specific lower extremity weakness or radiculopathy bilaterally. She does have some soreness over the lateral hips and thighs. Multiple imaging modalities were taken during her presentation to the emergency department. She is known to have fallen off her horse previously. She has a history of primary biliary cirrhosis and is unable take acetaminophen. Since being seen and examined yesterday, an MRI of the thoracic spine has been performed. Yesterday a prescription for a Spinomed TLSO was written, signed, and provided to case management. This brace has been delivered and fitted properly. Patient has been wearing this brace when out of bed and with increased activities and has had some control her pain while doing so. She attempted to wear this brace in bed which exacerbated her back pain further. She has been experiencing headaches since yesterday and is currently being treated by medicine. They're planning for discharge tomorrow. Physical exam: Patient is awake, alert, and oriented 3 Vital signs stable Good chest excursion with deep inspiration and expiration Examination of thoracic and lumbar spine reveals skin is intact with no abrasions, lacerations, or bruises; no erythema, purulence or signs of infection Mild pain with palpation of the mid upper thoracic spine Significant pain with palpation along the midline of the lower thoracic spine Dorsiflexion, plantarflexion, and extensor hallucis longus positive sustained bilaterally Lower extremity strength 5/5 bilaterally No lower extremity hyperreflexia bilaterally No signs or symptoms of DVT; no calf pain No pain with internal and external rotation of the hips bilaterally Neurovascularly intact Pertinent studies: MRI of the thoracic spine taken on 10/13/2018: T6 and T7 mild anterior wedge compression fracture deformities at the superior endplate with approximately 10% height loss with slightly increased signal on T2 images in these vertebral bodies; T11 slight anterior wedging and Schmorl's node; T12 slight anterior wedging with mild edema at the anterior aspect of the vertebral body; no evidence of spinal canal stenosis; no evidence of significant osteophytic bone formation CT of the thoracic and lumbar spine taken on 10/13/2018: T12 superior endplate deformity; T6 and T7 recent-appearing cyst at the superior endplate resulting mild compression fracture in which follow-up MRI is recommended; T9 and T11 Schmorl's node; no evidence of lumbar compression fracture deformity X-ray of the pelvis taken on 10/12/2018: No evidence of fracture dislocation within the pelvis; hip joint space and appears to be adequately maintained bilaterally Assessment: T6, T7, and T12 acute mild superior endplate compression fracture deformities with increased uptake T11 mild superior endplate deformity with Schmorl's node which may be chronic Status post fall from horse Intractable thoracic back pain Primary biliary cirrhosis Plan: 1. After reviewing of imaging occluding recent thoracic MRI, physical examination the patient, and further discussion with the patient, will currently planto continue with conservative treatment as set forth yesterday. Patient does have evidence of multiple changes with compression at T6, T7, and T12 that appear to be acute in nature. She also has some changes at T11 that may be more chronic in nature. We will also plan continue with bracing. A prescription has been written and provided to case management for a Spinomed TLSO brace. This brace has been delivered and fitted appropriately and the patient should wear this brace while sitting upright at greater than 45, during increase acti vities, and during ambulation. Brace does not have to or while lying in bed or while bathing. Patient is now clear for discharge from an orthopedic spine standpoint. Following discharge, patient may follow-up with Jerry Almazan PA-C or Dr. Johann Benavides at [facility] in 2-3 weeks. 2. Patient will continue be seen and examined by medicine for her other medical diagnoses
--- NOTE | 2018-10-14 13:15 | P.PN ---
Subjective Progress Note Date: 10/14/18 Patient seen and examined at bedside. States she states that she is feeling better today with her back pain. She is having headaches that are controlled with NSAIDs. She was evaluated by orthopedic surgery secondary to finding of possible acute thoracic spine fractures. She has been fitted for a TSLO brace and has been cleared for discharge from the orthopedics standpoint Objective - Vital Signs Vital signs: Vital Signs Temp 97.9 F 10/14/18 07:00 Pulse 79 10/14/18 07:00 Resp 14 10/14/18 07:00 BP 127/80 10/14/18 07:00 Pulse Ox 94 L 10/14/18 07:00 Intake & Output 10/13/18 10/14/18 10/14/18 18:59 06:59 18:59 Intake Total 400 Balance 400 Intake: Oral 400 Other: # Voids 2 1 - Constitutional General appearance: Present: cooperative, no acute distress - EENT Eyes: Present: PERRLA - Respiratory Details: no difficulty with respiration - Gastrointestinal Gastrointestinal Comment(s): soft, nontender, nondistended, no rebound, no guarding - Psychiatric Psychiatric: Present: A&O x's 3 - Labs CBC & Chem 7: 10/12/18 21:15 10/12/18 21:15 Assessment and Plan (1) Fall Narrative/Plan: 52-year-old female with fall from horse - Multiple thoracic spine fractures were noted on CT and orthopedic spine surgery was consulted. It does appear that the patient has acute fractures of T 6, T7 and T12. Discussion was had with the patient with orthopedics and the plan is conservative treatment with a TSLO brace. We will continue analgesia for the patient. She will follow with orthopedic surgery as an outpatient after discharge. We will plan for discharge in the next 24-48 hours. Current Visit: Yes Status: Acute Code(s): W19.XXXA - UNSPECIFIED FALL, INITIAL ENCOUNTER SNOMED Code(s): 0771759
[2018-10-14] MEDS: FUROSEMIDE 20 MG TAB PO SCH ×2 (14:06→17:39)
[2018-10-14] MEDS: hydrOXYzine HCL 25 MG TAB PO SCH (21:16)
[2018-10-14 23:21] VITALS: RESP 17
[2018-10-15] MEDS: traMADol 50 MG TAB PO PRN (04:00)
[2018-10-15] MEDS: URSODIOL 300 MG CAP PO SCH (07:06)
[2018-10-15] MEDS: SODIUM CHLORIDE 0.9% 1,000 ML IV SCH (07:24)
--- NOTE | 2018-10-15 08:00 | P.DS ---
Providers Date of admission: 10/13/18 00:51 Attending physician: Joleen Gaspar DO Consults: 10/13/18 08:48 Consult Physician Routine Consulting Provider: Jesse Benavides Consult Reason/Comments: TSpine Fx Do you want consulting provider notified?: Yes Primary care physician: Physician Nonstaff - Discharge Diagnosis(es) (1) Fall Current Visit: Yes Status: Acute Hospital Course: 52-year-old female presented to the emergency department after having a fall from a horse while riding. She was initially admitted from the emergency department due to continued back pain. On my initial exam of the patient, she was noted to have continued back pain and a CT of the thoracic and lumbar spine were ordered. CT did show a fracture of the T6, T7 vertebrae. Secondary to this, orthopedic surgery/spine were consulted. MRI was performed and orthopedic surgery has recommended a back brace and follow-up in 2 weeks. The patient is otherwise surgically stable for discharge. I did have a long discussion with the patient prior to her discharge. She is not to return to work or have any lifting or increased activity until cleared by orthopedic surgery. The patient did voice her understanding. The patient is also to immediately present back to the ER or to her primary care physician if any additional symptoms arise, in cluding headaches or focal deficits. The patient did voice understanding. I did strongly recommend that the patient follow-up with her primary care physician in the next day or 2. Pertinent Studies: CT of thoracic and lumbar spine MRI of thoracic and lumbar spine Patient Condition at Discharge: Fair Plan - Discharge Summary Discharge Rx Participant: Yes New Discharge Prescriptions: New Methocarbamol [Robaxin] 500 mg PO QID 10 Days #40 tab traMADol HCl [Ultram] 100 mg PO TID PRN #15 tab PRN Reason: Pain Continue Spironolactone 50 mg PO DAILY Pantoprazole Sodium [Protonix] 40 mg PO DAILY Nadolol [Corgard] 20 mg PO DAILY Furosemide [Lasix] 20 mg PO BID hydrOXYzine HCL [Atarax] 50 mg PO HS Obeticholic Acid [Ocaliva] 5 mg PO DAILY Rifampin 150 mg PO BID Ursodiol 300 mg PO BID Discharge Medication List Furosemide [Lasix] 20 mg PO BID 08/08/17 [History] Nadolol [Corgard] 20 mg PO DAILY 08/08/17 [History] Obeticholic Acid [Ocaliva] 5 mg PO DAILY 08/08/17 [History] Pantoprazole Sodium [Protonix] 40 mg PO DAILY 08/08/17 [History] Spironolactone 50 mg PO DAILY 08/08/17 [History] hydrOXYzine HCL [Atarax] 50 mg PO HS 08/08/17 [History] Rifampin 150 mg PO BID 10/12/18 [History] Ursodiol 300 mg PO BID 10/12/18 [History] Methocarbamol [Robaxin] 500 mg PO QID 10 Days #40 tab 10/15/18 [Rx] traMADol HCl [Ultram] 100 mg PO TID PRN #15 tab 10/15/18 [Rx] Follow up Appointment(s)/Referral(s): Jesse Benavides DO [Doctor of Osteopathic Medicine] - 2 Weeks (Patient may follow-up with Jerry Almazan PA-C or Dr. Johann Benavides at [facility] in 2-3 weeks following discharge. ) Nonstaff,Physician [Primary Care Provider] - 1-2 days Barbara Knox [NON-STAFF] - As Needed (TLSO back brace ) Patient Instructions/Handouts: Back Pain (ED) Activity/Diet/Wound Care/Special Instructions: 1. Patient may wear Spinomed TLSO brace for comfort and support while sitting upright at greater than 45, while working with therapy, and while ambulating; patient does not have to wear the brace while lying in bed or bathing 2. Patient should avoid excessive bending, twisting, and lifting; no lifting greater than 10 pounds Discharge Disposition: HOME SELF-CARE
[2018-10-15 08:05] VITALS: BP 121/76; PULSE 64; TEMP 97.8
[2018-10-15] MEDS: PANTOPRAZOLE 40 MG TABLET PO SCH (08:48)
[2018-10-15] MEDS: SPIRONOLACTONE 25 MG TAB PO SCH (08:48)
[2018-10-15] MEDS: MORPHINE SULFATE 4 MG/ML SYRINGE IV PRN (08:58)
[2018-10-15] MEDS ORDERED: DOCUSATE 100 MG CAP PO SCH (09:00)
[2018-10-15] MEDS: RIFAMPIN 150 MG PO SCH (09:57)
[2018-10-15] MEDS: [UNRECOGNIZED DRUG - OTHER] PO SCH (09:57)
[2018-10-15] MEDS: LIDOCAINE 5% PATCH TOPICAL SCH (10:00)
[2018-10-15] MEDS: METHOCARBAMOL 500 MG TAB PO SCH (10:00)
[2018-10-15] MEDS: NADOLOL 20 MG TAB PO SCH (10:00)
[2018-10-15] MEDS: FUROSEMIDE 20 MG TAB PO SCH (10:00)
[2018-10-15] MEDS ORDERED: KETOROLAC 30 MG/ML 1 ML VIAL IVP STA (10:03)
== END 2018-10-15 14:05 | disposition home or self-care (01) ==
LOC: EC 20:52 → 4SSUR 10-13 00:51
PROVIDERS: ADMIT Surgery; ATTEND Surgery
DX: S22.050A Wedge compression fracture of T5-T6 vertebra, initial encounter for closed fracture (principal); S22.060A Wedge compression fracture of T7-T8 vertebra, initial encounter for closed fracture; S22.089A Unspecified fracture of T11-T12 vertebra, initial encounter for closed fracture; M48.54XA Collapsed vertebra, not elsewhere classified, thoracic region, initial encounter for fracture; M43.8X4 Other specified deforming dorsopathies, thoracic region; K74.3 Primary biliary cirrhosis; I10 Essential (primary) hypertension; R51 Headache; R29.6 Repeated falls; Y93.52 Activity, horseback riding; V80.010A Animal-rider injured by fall from or being thrown from horse in noncollision accident, initial encounter; Z76.82 Awaiting organ transplant status; Z82.49 Family history of ischemic heart disease and other diseases of the circulatory system; Z83.3 Family history of diabetes mellitus; Z82.3 Family history of stroke; Z79.899 Other long term (current) drug therapy; Z79.2 Long term (current) use of antibiotics; Z88.5 Allergy status to narcotic agent
CPT/HCPCS: 96376 ×5; 96375 ×2; 96374; 99285; 36415; 80053; 85025; 81001; 72072; 72170; 71046; 72128; 72125; 72131; 70450; 71250; 72146; G0378 ×3; L0120; J2270 ×4; J2405 ×2; J1885 ×3; J1170

== ENCOUNTER 2019-01-24 14:52 | Emergency (ER) | payer BC, OTHER ==
[2019-01-24 15:06] VITALS: RESP 18
[2019-01-24] MEDS ORDERED: MORPHINE SULFATE 4 MG/ML SYRINGE IVP STA (15:08)
[2019-01-24 15:30] LABS: Anisocytosis Slight; Basophils % (A) 1 %; Eosinophils # (A) 0.2 k/uL (0-0.7); Eosinophils % (A) 4 %; HCT 32.1 % (34.0-46.0); HGB 10.1 gm/dL (11.4-16.0); Hypochromasia Marked; Lymphocytes # (A) 0.9 k/uL (1.0-4.8); Lymphocytes % (A) 21 %; MCH 24.6 pg (25.0-35.0); MCHC 31.4 g/dL (31.0-37.0); MCV 78.5 fL (80.0-100.0); Mean Platelet Volume 10.9; Microcytosis Slight; Monocytes # (A) 0.3 k/uL (0-1.0); Monocytes % (A) 6 %; Neutrophils % (A) 68 %; Platelet Count 128 k/uL (150-450); Poikilocytosis Slight; RBC 4.09 m/uL (3.80-5.40); RDW 16.8 % (11.5-15.5); WBC 4.4 k/uL (3.8-10.6)
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
[2019-01-24 15:42] LABS: ALT 60 U/L (9-52); AST 112 U/L (14-36); African American GFR (CKD) >90 (>60 ml/min/1.73 sqM); Albumin 3.6 g/dL (3.5-5.0); Alkaline Phosphatase 349 U/L (38-126); Anion Gap 8 mmol/L; Blood Urea Nitrogen 20 mg/dL (7-17); Calcium 8.9 mg/dL (8.4-10.2); Carbon Dioxide 28 mmol/L (22-30); Chloride 104 mmol/L (98-107); Glucose 162 mg/dL (74-99); Potassium 3.6 mmol/L (3.5-5.1); Sodium 140 mmol/L (137-145); Total Bilirubin 1.1 mg/dL (0.2-1.3); Total Protein 7.5 g/dL (6.3-8.2)
[2019-01-24 16:06] LABS: INR 0.9 (<1.2); Partial Thromboplastin Time 21.8 sec (22.0-30.0)
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
[2019-01-24] MEDS ORDERED: HYDROmorphone 1 MG/ML 1 ML SYRINGE IVP STA (17:55)
[2019-01-24 20:49] VITALS: BP 136/58; PULSE 76; TEMP 98
== END 2019-01-24 18:30 | disposition home or self-care (01) ==
LOC: EC 14:52
DX: S70.11XA Contusion of right thigh, initial encounter (principal); S60.812A Abrasion of left wrist, initial encounter; S50.812A Abrasion of left forearm, initial encounter; S89.91XA Unspecified injury of right lower leg, initial encounter; I10 Essential (primary) hypertension; K74.3 Primary biliary cirrhosis; Z88.5 Allergy status to narcotic agent; Z79.899 Other long term (current) drug therapy; Z87.81 Personal history of (healed) traumatic fracture; Z91.81 History of falling; V23.4XXA Motorcycle driver injured in collision with car, pick-up truck or van in traffic accident, initial encounter; Y93.89 Activity, other specified; Y92.410 Unspecified street and highway as the place of occurrence of the external cause
CPT/HCPCS: 36415; 80053; 85025; 85610; 85730; 73502; 73552; 73110; 99285; 96374; 96375; J2270; J1170

== ENCOUNTER 2019-11-18 21:13 | Emergency (ER) | payer BC, OTHER ==
--- NOTE | 2019-11-18 23:05 | XR ---
EXAMINATION TYPE: XR hand complete LT DATE OF EXAM: 11/18/2019 COMPARISON: NONE HISTORY: Pain TECHNIQUE: 3 views FINDINGS: Metacarpals are intact. I see no fracture nor dislocation. Joint spaces are fairly normal. There are no erosions. IMPRESSION: Negative left hand exam. No fracture seen.
--- NOTE | 2019-11-18 23:09 | ED ---
Upper Extremity HPI - General Chief Complaint: Extremity Injury, Upper Stated Complaint: [facility]-left hand injury Time Seen by Provider: 11/18/19 21:37 Source: patient Mode of arrival: ambulatory Limitations: no limitations - History of Present Illness Initial Comments: 54yo female presenting for left hand pain she states a piece of metal fall yesterday and worked as a laceration or cut states that she has pain in digits #2-4. Patient denies numbness, admits to tingling and swelling. Denies loss of motion, or redness. Patient denies injury to wrist or other sites. Patient has no additional complaints. When pain persisted today she decided to come to the ER for further evaluation and treatment - Related Data Home Medications Medication Instructions Recorded Confirmed Furosemide [Lasix] 20 mg PO BID 08/08/17 11/18/19 Nadolol [Corgard] 20 mg PO DAILY 08/08/17 11/18/19 Obeticholic Acid [Ocaliva] 5 mg PO DAILY 08/08/17 11/18/19 Pantoprazole Sodium [Protonix] 40 mg PO DAILY 08/08/17 11/18/19 Spironolactone 50 mg PO DAILY 08/08/17 11/18/19 hydrOXYzine HCL [Atarax] 50 mg PO HS 08/08/17 11/18/19 Rifampin 150 mg PO BID 10/12/18 11/18/19 Ursodiol 300 mg PO BID 10/12/18 11/18/19 Previous Rx's Medication Instructions Recorded Methocarbamol [Robaxin] 500 mg PO QID 10 Days #40 tab 10/15/18 traMADol HCl [Ultram] 100 mg PO TID PRN #15 tab 10/15/18 traMADol HCl [Ultram] 50 mg PO Q6HR PRN 3 Days #12 tab 01/24/19 Allergies Allergy/AdvReac Type Severity Reaction Status Date / Time codeine AdvReac Chest Pain Verified 11/18/19 21:24 Review of Systems ROS Statement: Those systems with pertinent positive or pertinent negative responses have been documented in the HPI. ROS Other: All systems not noted in ROS Statement are negative. Past Medical History Past Medical History: Hypertension Additional Past Medical History / Comment(s): PBC History of Any Multi-Drug Resistant Organisms: None Reported Past Surgical History: Joint Replacement, Tubal Ligation Past Anesthesia/Blood Transfusion Reactions: No Reported Reaction Past Psychological History: No Psychological Hx Reported Smoking Status: Never smoker Past Alcohol Use History: Rare Past Drug Use History: None Reported - Past Family History Father Family Medical History: CVA/TIA, Myocardial Infarction ([place]) Mother Family Medical History: Diabetes Mellitus General Exam - General Exam Comments Initial Comments: General: The patient is awake and alert, in no distress, and does not appear acutely ill. Eye: Pupils are equal, round and reactive to light, extra-ocular movements are intact. No nystagmus. There is normal conjunctiva bilaterally. No signs of icterus. Ears, nose, mouth and throat: There are moist mucous membranes and no oral lesions. Musculoskeletal: Swelling of digits 2-4 mild. Full ROM at the DIP, MCP and PIP joints of all 5 digits, no limitations, some tenderness with ROm of digits 2-4. Strength 5/5. Sensation intact proximal and distal to injury sites. Tissues of hands soft compressible. No scaphoid tenderness. Capillary refill < 3 seconds. Radial pulses equal bilaterally 2+. Neurological: A&O x 3. CN II-XII intact rgossly, There are no obvious motor or sensory deficits. Coordination appears grossly intact. Speech is normal. Skin: Skin is warm and dry and no rashes or lesions are noted. Psychiatric: Cooperative, appropriate mood & affect, normal judgment. Limitations: no limitations Course Vital Signs 11/18/19 11/18/19 21:21 23:15 Temperature 98.6 F 98.3 F Pulse Rate 90 81 Respiratory 18 20 Rate Blood Pressure 157/85 132/65 O2 Sat by Pulse 100 99 Oximetry Medical Decision Making - Medical Decision Making XR (-) for fracture. Tissues soft. No findings on PE consistent with tendon injury. Patient will be discharged with RICE instruction and PCP f/u. If develop abrupt onset of decreased ROM is to f/u with hand surgeon or return to ER. Patient discharged appearing well, neurovascularly intact agreeable to care plan and discharge. Disposition Clinical Impression: Left hand pain, Crushing injury of left hand Disposition: HOME SELF-CARE Condition: Good Instructions (If sedation given, give patient instructions): R.I.C.E. Treatment (ED) Additional Instructions: Please use medication as discussed. Please follow-up with family doctor in the next 2 days. Any limitation in range of motion of fingers, need to see orthopedic hand. Please return to emergency room if the symptoms increase or worsen or for any other concerns. Is patient prescribed a controlled substance at d/c from ED?: No Referrals: Ivet Call MD [Primary Care Provider] - 1-2 days Juan Diana DO [Medical Doctor] - 1-2 days Time of Disposition: 23:09
[2019-11-20 09:43] VITALS: BP 132/65; PULSE 81; RESP 20; TEMP 98.3
== END 2019-11-18 23:15 | disposition home or self-care (01) ==
LOC: EC 21:13
DX: S67.22XA Crushing injury of left hand, initial encounter (principal); I10 Essential (primary) hypertension; Z79.899 Other long term (current) drug therapy; Z88.5 Allergy status to narcotic agent; W20.8XXA Other cause of strike by thrown, projected or falling object, initial encounter; Y92.69 Other specified industrial and construction area as the place of occurrence of the external cause; Y99.0 Civilian activity done for income or pay
CPT/HCPCS: 99283

== ENCOUNTER 2019-12-27 19:19 | Emergency (ER) | payer BC, OTHER ==
[2019-12-27 19:33] VITALS: TEMP 98.3
[2019-12-27] MEDS ORDERED: SODIUM CHLORIDE 0.9% 1,000 ML IV STA (19:58)
[2019-12-27] MEDS ORDERED: HYDROmorphone 0.5 MG/0.5 ML SYRINGE IVP STA (20:03)
[2019-12-27] MEDS ORDERED: ONDANSETRON 4 MG/2 ML VIAL IVP STA (20:03)
--- NOTE | 2019-12-27 20:24 | ED ---
General Adult HPI - General Chief complaint: Abdominal Pain Stated complaint: Back Pain Time Seen by Provider: 12/27/19 19:43 Source: patient, family, RN notes reviewed Mode of arrival: ambulatory Limitations: no limitations - History of Present Illness Initial comments: 54-year-old female with past medical history of PBC, pancreatitis, ascites presents to the emergency department for a chief complaint of upper abdominal pain. Patient reports she has had upper abdominal pain mostly in the left side for the past few days. States she had diarrhea last night as well. Mild nausea has been persistent over the past few days. Patient denies fevers or chills. Patient is concerned she may have pancreatitis given these are similar to her previous symptoms. Patient does have history of cholecystectomy.Patient has no other complaints at this time including shortness of breath, chest pain, headache, or visual changes. - Related Data Home Medications Medication Instructions Recorded Confirmed Furosemide [Lasix] 20 mg PO BID 08/08/17 11/18/19 Obeticholic Acid [Ocaliva] 5 mg PO DAILY 08/08/17 11/18/19 Pantoprazole Sodium [Protonix] 40 mg PO DAILY 08/08/17 11/18/19 Spironolactone 50 mg PO DAILY 08/08/17 11/18/19 hydrOXYzine HCL [Atarax] 50 mg PO HS 08/08/17 11/18/19 nadoloL [Corgard] 20 mg PO DAILY 08/08/17 11/18/19 rifAMPin [Rifampin] 150 mg PO BID 10/12/18 11/18/19 ursodioL [Ursodiol] 300 mg PO BID 10/12/18 11/18/19 Previous Rx's Medication Instructions Recorded methocarbamoL [Robaxin] 500 mg PO QID 10 Days #40 tab 10/15/18 traMADol HCl [Ultram] 100 mg PO TID PRN #15 tab 10/15/18 traMADol HCl [Ultram] 50 mg PO Q6HR PRN 3 Days #12 tab 01/24/19 Allergies Allergy/AdvReac Type Severity Reaction Status Date / Time codeine AdvReac Chest Pain Verified 12/27/19 19:33 Review of Systems ROS Statement: Those systems with pertinent positive or pertinent negative responses have been documented in the HPI. ROS Other: All systems not noted in ROS Statement are negative. Past Medical History Past Medical History: Hypertension Additional Past Medical History / Comment(s): PBC History of Any Multi-Drug Resistant Organisms: None Reported Past Surgical History: Joint Replacement, Tubal Ligation Past Anesthesia/Blood Transfusion Reactions: No Reported Reaction Past Psychological History: No Psychological Hx Reported Smoking Status: Never smoker Past Alcohol Use History: Rare Past Drug Use History: None Reported - Past Family History Father Family Medical History: CVA/TIA, Myocardial Infarction ([place]) Mother Family Medical History: Diabetes Mellitus General Exam Limitations: no limitations General appearance: alert, in no apparent distress Head exam: Present: atraumatic, normocephalic, normal inspection Eye exam: Present: normal appearance, PERRL, EOMI. Absent: scleral icterus, conjunctival injection, periorbital swelling ENT exam: Present: normal exam, mucous membranes moist Neck exam: Present: normal inspection, full ROM. Absent: tenderness, m eningismus, lymphadenopathy Respiratory exam: Present: normal lung sounds bilaterally. Absent: respiratory distress, wheezes, rales, rhonchi, stridor Cardiovascular Exam: Present: regular rate, normal rhythm, normal heart sounds. Absent: systolic murmur, diastolic murmur, rubs, gallop, clicks GI/Abdominal exam: Present: soft, tenderness (mild epigastric and left upper quadrant tenderness without guarding or rebound), normal bowel sounds. Absent: distended, guarding, rebound, rigid Back exam: Absent: CVA tenderness (R), CVA tenderness (L) Neurological exam: Present: alert Course Vital Signs 12/27/19 12/27/19 12/27/19 19:28 21:54 22:10 Temperature 98.3 F 98.3 F Pulse Rate 80 66 66 Respiratory 20 18 18 Rate Blood Pressure 132/72 119/65 121/66 O2 Sat by Pulse 99 97 97 Oximetry Medical Decision Making - Medical Decision Making HPI and physical exam as documented. Vitals are stable. CBC is unremarkable. Hemoglobin of 9.9 is baseline. CMP is pertinent for transaminitis and a mild hyperbilirubinemia of 3.3. Patient states that this is normal for her given her liver disease. Lipase is 339 which is not significantly elevated. CT abdomen and pelvis showed some mild fat stranding and fluid in the right lateral abdomen of uncertain origin and significance. The appendix appears normal and the cecum does not show any wall thickening to suggest inflammatory process. There is moderate splenomegaly with prominent vessels around the gastroesophageal junction suggestive of varices and portal venous hypertension which patient does have a history of. At this time patient's pain is much improved. Patient will be discharged home to follow up with primary care and GI. I did recommend she repeat her laboratory work and she is agreeable to this. She will return for any worsening symptoms. - Lab Data Result diagrams: 12/27/19 20:41 12/27/19 20:41 Lab Results 12/27/19 12/27/19 12/27/19 Range/Units 20:41 20:41 20:41 WBC 3.9 (3.8-10.6) k/uL RBC 4.19 (3.80-5.40) m/uL Hgb 9.9 L (11.4-16.0) gm/dL Hct 32.5 L (34.0-46.0) % MCV 77.5 L (80.0-100.0) fL MCH 23.8 L (25.0-35.0) pg MCHC 30.6 L (31.0-37.0) g/dL RDW 17.4 H (11.5-15.5) % Plt Count 106 L (150-450) k/uL Neutrophils % 72 % Lymphocytes % 18 % Monocytes % 6 % Eosinophils % 2 % Basophils % 0 % Neutrophils # 2.8 (1.3-7.7) k/uL Lymphocytes # 0.7 L (1.0-4.8) k/uL Monocytes # 0.2 (0-1.0) k/uL Eosinophils # 0.1 (0-0.7) k/uL Basophils # 0.0 (0-0.2) k/uL Hypochromasia Marked Anisocytosis Slight Microcytosis Slight Sodium 136 L (137-145) mmol/L Potassium 3.9 (3.5-5.1) mmol/L Chloride 102 (98-107) mmol/L Carbon Dioxide 27 (22-30) mmol/L Anion Gap 7 mmol/L BUN 22 H (7-17) mg/dL Creatinine 0.75 (0.52-1.04) mg/dL Est GFR (CKD-EPI)AfAm >90 (>60 ml/min/1.73 sqM) Est GFR (CKD-EPI)NonAf 90 (>60 ml/min/1.73 sqM) Glucose 103 H (74-99) mg/dL Calcium 8.8 (8.4-10.2) mg/dL Total Bilirubin 3.3 H (0.2-1.3) mg/dL AST 237 H (14-36) U/L ALT 112 H (4-34) U/L Alkaline Phosphatase 561 H (38-126) U/L Total Protein 7.9 (6.3-8.2) g/dL Albumin 3.7 (3.5-5.0) g/dL Amylase 95 (30-110) U/L Lipase 339 H (23-300) U/L Urine Color Tamra Urine Appearance Slightly Cloudy H (Clear) Urine pH 6.0 (5.0-8.0) Ur Specific [place] 1.015 (1.001-1.035) Urine Protein Negative (Negative) Urine Glucose (UA) Negative (Negative) Urine Ketones Negative (Negative) Urine Blood Negative (Negative) Urine Nitrite Negative (Negative) Urine Bilirubin 2+ H (Negative) Urine Urobilinogen 8.0 (<2.0) mg/dL Ur Leukocyte Esterase Negative (Negative) Urine RBC 1 (0-5) /hpf Urine WBC 3 (0-5) /hpf Ur Squamous Epith Cells 1 (0-4) /hpf Calcium Oxalate Crystal Many H (None) /hpf Urine Bacteria Many H (None) /hpf Urine Mucus Rare H (None) /hpf Disposition Clinical Impression: Abdominal pain, Transaminitis, Elevated bilirubin Disposition: HOME SELF-CARE Condition: Fair Instructions (If sedation given, give patient instructions): Abdominal Pain (ED) Additional Instructions: Please follow up with your doctor in the next couple days. Have your blood work repeated. If you haven worsening symptoms return to the emergency department. Is patient prescribed a controlled substance at d/c from ED?: No Referrals: Ivet Call MD [Primary Care Provider] - 1-2 days Time of Disposition: 22:06
[2019-12-27 20:54] LABS: Bacteria,Urine Many /hpf; Calcium Oxalate Crystals,Urine Many /hpf; Mucus,Urine Rare /hpf; RBC,Urine 1 /hpf (0-5); Squamous Epithelial Cell,Urine 1 /hpf (0-4); WBC,Urine 3 /hpf (0-5)
[2019-12-27 20:55] LABS: Appearance,Urine Slightly Cloudy (Clear); Color,Urine Amber; Protein,Urine Negative (Negative); Specific Gravity,Urine 1.015 (1.001-1.035)
[2019-12-27 20:56] LABS: ALT 112 U/L (4-34); AST 237 U/L (14-36); African American GFR (CKD) >90 (>60 ml/min/1.73 sqM); Albumin 3.7 g/dL (3.5-5.0); Alkaline Phosphatase 561 U/L (38-126); Amylase 95 U/L (30-110); Anion Gap 7 mmol/L; Bilirubin,Urine 2+ (Negative); Blood Urea Nitrogen 22 mg/dL (7-17); Blood,Urine Negative (Negative); Calcium 8.8 mg/dL (8.4-10.2); Carbon Dioxide 27 mmol/L (22-30); Chloride 102 mmol/L (98-107); Glucose 103 mg/dL (74-99); Glucose,Urine (UA) Negative (Negative); Ketones,Urine Negative (Negative); Nitrite,Urine Negative (Negative); Non-African American GFR(CKD) 90 (>60 ml/min/1.73 sqM); Potassium 3.9 mmol/L (3.5-5.1); Sodium 136 mmol/L (137-145); Total Bilirubin 3.3 mg/dL (0.2-1.3); Total Protein 7.9 g/dL (6.3-8.2)
[2019-12-27 20:57] LABS: Leukocyte Esterase,Urine Negative (Negative)
[2019-12-27 21:00] LABS: Anisocytosis Slight; Basophils % (A) 0 %; Eosinophils # (A) 0.1 k/uL (0-0.7); Eosinophils % (A) 2 %; HCT 32.5 % (34.0-46.0); HGB 9.9 gm/dL (11.4-16.0); Hypochromasia Marked; Lymphocytes # (A) 0.7 k/uL (1.0-4.8); Lymphocytes % (A) 18 %; MCH 23.8 pg (25.0-35.0); MCHC 30.6 g/dL (31.0-37.0); MCV 77.5 fL (80.0-100.0); Mean Platelet Volume 10.4; Microcytosis Slight; Monocytes # (A) 0.2 k/uL (0-1.0); Monocytes % (A) 6 %; Neutrophils # (A) 2.8 k/uL (1.3-7.7); Neutrophils % (A) 72 %; Platelet Count 106 k/uL (150-450); RBC 4.19 m/uL (3.80-5.40); RDW 17.4 % (11.5-15.5); WBC 3.9 k/uL (3.8-10.6)
--- NOTE | 2019-12-27 21:35 | CT ---
EXAMINATION TYPE: CT abdomen pelvis w con DATE OF EXAM: 12/27/2019 COMPARISON: None HISTORY: abdominal pain CT DLP: 708.1 mGycm Automated exposure control for dose reduction was used. CONTRAST: Performed with IV Contrast, patient injected with 100 mL of Isovue 300. Multiple axial sections were obtained from the diaphragm to the floor the pelvis with IV contrast. Lung bases are clear. There is no pleural effusion. There are clips from cholecystectomy. Liver shows no focal defect. The bile ducts are not dilated. Spleen is enlarged and measures 18 cm in length. Th ere is no evidence of pancreatic mass. Stomach is intact. There are some prominent vessels at the gas troesophageal junction. There is no adrenal mass. Kidneys show satisfactory contrast opacification. There is no hydronephrosi s. Ureters are not dilated. There is no retroperitoneal adenopathy. Bladder distends smoothly. There is no inguinal hernia. There is no free fluid in the pelvis. Uterus is anteverted. Lumbar vertebra sexton ve normal spacing and alignment. There is no compression fracture. The bony pelvis is intact. Appendi x is posterior and appears normal. There is some fluid in the right paracolic gutter. There is mild f at stranding in the right lateral abdomen. I see no wall thickening of the cecum. There is no free air. There is no ascites. IMPRESSION: There is some mild fat stranding and fluid in the right lateral abdomen of uncertain origin and signi ficance. The appendix appears normal and the cecum does not show any wall thickening to suggest infla mmatory process. Moderate splenomegaly. There are prominent vessels around the gastroesophageal junction suggestive of varices and portal venous hypertension.
[2019-12-27 21:55] VITALS: PULSE 66; RESP 18
[2019-12-27 22:10] VITALS: BP 121/66
[2019-12-27] MEDS ORDERED: HYDROcodone/APAP 5-325MG 1 EACH TAB PO STA (22:14)
== END 2019-12-27 22:28 | disposition home or self-care (01) ==
LOC: EC 19:19
DX: R74.0 Nonspecific elevation of levels of transaminase and lactic acid dehydrogenase [LDH] (principal); R10.12 Left upper quadrant pain; E80.6 Other disorders of bilirubin metabolism; R16.1 Splenomegaly, not elsewhere classified; Z87.19 Personal history of other diseases of the digestive system; Z88.5 Allergy status to narcotic agent; I10 Essential (primary) hypertension; Z79.899 Other long term (current) drug therapy
CPT/HCPCS: 36415; 80053; 82150; 83690; 85025; 81001; 74177; 99284; 96374; 96375; 96361; J2405; J1170; Q9967

== ENCOUNTER → 2020-01-15 | Outpatient (CLI) | payer BC | END | disposition home or self-care (01) | LOC: LABWHC1 14:13 | PROVIDERS: ATTEND Emergency Medicine | DX: Z20.828 Contact with and (suspected) exposure to other viral communicable diseases (principal) | CPT/HCPCS: U0003; C9803 ==